=== PATIENT | male | born 1960 | race Two or more races ===

== ENCOUNTER 2017-02-08 18:00 | Emergency (ER) | payer MEDICAID, OTHER ==
[~2017-02-08] VITALS: Ht 167.6 cm; Wt 86.2 kg
[2017-02-08 18:48] VITALS: BP 127/80
[2017-02-08] MEDS ORDERED: IBUPROFEN 600 MG TAB PO ONE (21:45)
[2017-02-08] MEDS ORDERED: BACLOFEN 10 MG TAB PO ONE (21:45)
== END 2017-02-08 22:42 | disposition home or self-care (01) ==
LOC: ER 18:14
DX: S16.1XXA Strain of muscle, fascia and tendon at neck level, initial encounter (principal); R07.89 Other chest pain; X50.9XXA Other and unspecified overexertion or strenuous movements or postures, initial encounter; Y93.89 Activity, other specified; Y92.89 Other specified places as the place of occurrence of the external cause; Y99.8 Other external cause status
CPT/HCPCS: 71010; 72040

== ENCOUNTER 2017-06-20 22:05 | Emergency (ER) | payer MEDICAID ==
[~2017-06-20] VITALS: Ht 165.1 cm; Wt 79.4 kg
[2017-06-20 23:07] LABS: Basophils # (auto) 0.1 uL; Basophils % (auto) 0.7 % (0.0-2.0); Eosinophils # (auto) 0.3 uL; Eosinophils % (auto) 3.2 % (0.0-7.0); Hematocrit 46.9 % (41.0-53.0); Hemoglobin 16.1 g/dL (13.5-17.5); Lymphocytes # (auto) 2.7 uL; Lymphocytes % (auto) 28.3 % (10.0-50.0); Mean Corpuscular Hgb Conc. 34.3 g/dL (32.0-36.0); Mean Corpuscular Volume 87.5 fL (80.0-100.0); Monocytes # (auto) 0.8 uL; Monocytes % (auto) 8.2 % (0.0-12.0); Neutrophils # (auto) 5.7 uL; Neutrophils % (auto) 59.6 % (37.0-80.0); Platelet Count (auto) 219 10^3/uL (140-450); Red Blood Cells 5.36 10^6/uL (4.5-5.90); Red Cell Distribution Width 13.4 % (11.8-14.3); White Blood Cell 9.6 10^3/uL (4.4-10.8)
[2017-06-20 23:27] LABS: Calcium 9.1 mg/dL (8.5-10.1); Potassium 3.9 mmol/L (3.5-5.1)
[2017-06-20 23:29] LABS: BUN/Creatinine Ratio 17.8
[2017-06-20 23:32] LABS: Bilirubin, Total 0.5 mg/dL (0.2-1.0); Total Protein 7.8 g/dL (6.4-8.2)
[2017-06-20 23:34] LABS: Urine Bacteria FEW /hpf (None Seen); Urine Blood Negative /uL (Negative); Urine Hyaline Cast FEW /lpf (0 - 2); Urine Mucus FEW (None Seen); Urine Specific Gravity 1.031 (1.001-1.035); Urine WBC 8 /hpf (0 - 3)
[2017-06-21] MEDS ORDERED: KETOROLAC TROMETH 60MG/2ML VIAL IM ONE (01:45)
[2017-06-21 03:02] VITALS: BP 144/74
== END 2017-06-21 03:45 | disposition home or self-care (01) ==
LOC: ER 22:05
DX: R10.32 Left lower quadrant pain (principal); K59.00 Constipation, unspecified
CPT/HCPCS: 36415; 71045; 74176; 80053; 81001; 82150; 83690; 85025; 96372; 99285; J1885

== ENCOUNTER 2020-01-07 19:44 | Inpatient (IN) | payer MEDICAID ==
[~2020-01-07] VITALS: Ht 170.2 cm; Wt 87.4 kg
[2020-01-07 21:06] LABS: Basophils # (auto) 0 10 ^3/uL (0-0.2); Basophils % (auto) 0.1 % (0.0-2.0); Eosinophils # (auto) 0 10 ^3/uL (0-0.8); Eosinophils % (auto) 0.2 % (0.0-7.0); Hematocrit 44.5 % (41.0-53.0); Hemoglobin 14.9 g/dL (13.5-17.5); Lymphocytes # (auto) 0.9 10 ^3/uL (0.4-5.4); Lymphocytes % (auto) 5.9 % (10.0-50.0); Mean Corpuscular Hgb Conc. 33.6 g/dL (32.0-36.0); Mean Corpuscular Volume 89.3 fL (80.0-100.0); Monocytes # (auto) 0.7 10 ^3/uL (0-1.3); Neutrophils # (auto) 13.2 10 ^3/uL (1.6-8.6); Neutrophils % (auto) 88.8 % (37.0-80.0); Platelet Count (auto) 199 10^3/uL (140-450); Red Blood Cells 4.98 10^6/uL (4.5-5.90); Red Cell Distribution Width 12.9 % (11.8-14.3); White Blood Cell 14.8 10^3/uL (4.4-10.8)
[2020-01-07 21:24] LABS: Alanine Aminotransferase 20 U/L (16-61); Anion Gap 5 (5-15); Aspartate Aminotransferase 16 U/L (15-37); BUN/Creatinine Ratio 14.9; Blood Urea Nitrogen 13 mg/dL (7-18); Calcium 8.6 mg/dL (8.5-10.1); Carbon Dioxide 29 mmol/L (21-32); Chloride 105 mmol/L (98-107); GFR African American 116 mL/min; GFR Non-African American 96 mL/min; Glucose 121 mg/dL (74-106); Potassium 3.8 mmol/L (3.5-5.1); Sodium 139 mmol/L (136-145)
[2020-01-07 21:29] LABS: Alkaline Phosphatase 89 U/L (45-117); Bilirubin, Total 0.7 mg/dL (0.2-1.0); Total Protein 7.6 g/dL (6.4-8.2)
[2020-01-07 21:52] LABS: INR 1.11 (0.9-1.15); Partial Thromboplastin Time 24.4 sec (23.0-31.2)
[2020-01-07] MEDS ORDERED: IOHEXOL 350 MG/ML 100ML IJ ONE (23:24)
[2020-01-07] MEDS ORDERED: MORPHINE SULFATE 4 MG/ML SYR/VIAL IV ONE (23:30)
[2020-01-07] MEDS ORDERED: ONDANSETRON HCL 4 MG/2 ML VIAL IV ONE (23:30)
[2020-01-08] MEDS ORDERED: METF-371 PO (00:47)
[2020-01-08] MEDS ORDERED: TAMS0.4C36 PO (00:47)
[2020-01-08] MEDS ORDERED: NITROGLYCERIN 0.4 MG SL TAB SL PRN (01:00)
[2020-01-08] MEDS ORDERED: MORPHINE SULFATE 4 MG/ML SYR/VIAL IV PRN (01:00)
[2020-01-08] MEDS ORDERED: MORPHINE SULF INJ 2 MG/ML SYRINGE 1ML IV PRN (01:00)
[2020-01-08] MEDS ORDERED: ONDANSETRON HCL 4 MG/2 ML VIAL IV PRN (01:00)
[2020-01-08 03:33] LABS: Urine Bacteria FEW /hpf (None Seen); Urine Blood 1+ /uL (Negative); Urine Specific Gravity > 1.050 (1.001-1.035); Urine WBC 23 /hpf (0 - 3)
--- NOTE | 2020-01-08 04:45 | NUR ---
Telemetry admit from ER MARTINSKALYANI SANCHEZ admitted to Telemetry unit. Patient oriented to Pastora Jacinto RN primary RN, unit, room, bed, and unit policies regarding patient care and visiting hours. Patient now on continuous telemetry monitoring, tele box # and telemetry reading on arrival to unit is NSR . Patient weighed by bedscale and encouraged to call if they need something. All questions and concerns addressed, patient verbalized understanding. Note: patient alert and oriented x 4, german speaking with pharmacognosy teacher at bedside. On room air with even and unlabored respirations, no s/s of distress. Instructed patient to call for assistance PRN. Will continue care.
--- NOTE | 2020-01-08 07:05 | NUR ---
Closing Note patient resting in bed with even and unlabored respirations, no s/s of distress noted. Bed in low locked position with side rails up x 2 and call light within reach.
[2020-01-08 08:58] LABS: Basophils # (auto) 0 10 ^3/uL (0-0.2); Basophils % (auto) 0.3 % (0.0-2.0); Eosinophils # (auto) 0.1 10 ^3/uL (0-0.8); Eosinophils % (auto) 1.4 % (0.0-7.0); Hematocrit 43.6 % (41.0-53.0); Hemoglobin 14.5 g/dL (13.5-17.5); Lymphocytes # (auto) 1.9 10 ^3/uL (0.4-5.4); Mean Corpuscular Hemoglobin 29.8 pg (28.0-32.0); Mean Corpuscular Hgb Conc. 33.2 g/dL (32.0-36.0); Mean Corpuscular Volume 89.6 fL (80.0-100.0); Monocytes # (auto) 0.7 10 ^3/uL (0-1.3); Monocytes % (auto) 7.7 % (0.0-12.0); Neutrophils % (auto) 68.6 % (37.0-80.0); Nucleated Red Blood Cells % 0.1 %; Platelet Count (auto) 187 10^3/uL (140-450); Red Blood Cells 4.87 10^6/uL (4.5-5.90); Red Cell Distribution Width 13.1 % (11.8-14.3); White Blood Cell 8.8 10^3/uL (4.4-10.8)
[2020-01-08] MEDS: ACETAMINOPHEN 500 MG TAB PO PRN (08:58)
[2020-01-08] MEDS: TAMSULOSIN HYDROCHLORIDE 0.4 MG CAP PO SCH (08:58)
[2020-01-08] MEDS: metFORMIN HYDROCHLORIDE 850 MG TAB PO SCH ×3 (08:58→18:40)
[2020-01-08 09:00] VITALS: BP 115/85
[2020-01-08 09:14] LABS: Albumin 3.7 g/dL (3.4-5.0); Calcium 8.5 mg/dL (8.5-10.1); Potassium 3.8 mmol/L (3.5-5.1)
[2020-01-08 09:17] LABS: BUN/Creatinine Ratio 14.1; Bilirubin, Total 0.8 mg/dL (0.2-1.0); Total Protein 7.2 g/dL (6.4-8.2)
[2020-01-08 12:16] LABS: Cholesterol 135 mg/dL (< 200)
[2020-01-08 12:18] LABS: HDL Cholesterol 48 mg/dL (40-59); LDL Cholesterol 85 mg/dL (< 100); Triglycerides 88 mg/dL (< 150)
[2020-01-08 13:00] VITALS: BP 126/59
[2020-01-08 17:00] VITALS: BP 122/74
--- NOTE | 2020-01-08 19:15 | NUR ---
OPENING NOTE- NOC SHIFT PATIENT IS ALERT AND ORIENTED X4, ANSWERS IN COMPLETE SENTENCES AND MAKES APPROPRIATE EYE CONTACT. PATIENT IS DJIBOUTIAN SPEAKING AND REQUIRES PUBLICITY AGENT. DISCUSSED POC WITH PATIENT AND INSTRUCTED PATIENT TO CALL PRN; PATIENT VERBALIZED UNDERSTANDING. WILL CONTINUE TO MONITOR Q1H AND PRN. NO S/SX OF DISTRESS, SOB OR PAIN. PATIENT DENIES DIZZINESS AT THIS TIME. BED ALARM IS ON.
[2020-01-08 22:00] VITALS: BP 124/73
--- NOTE | 2020-01-08 22:00 | NUR ---
DR LUND AT BEDSIDE
[2020-01-08] MEDS ORDERED: LORazepam 2MG/ML-1ML VIAL IV PRN (22:45)
[2020-01-09 05:00] VITALS: BP 119/71
[2020-01-09 06:15] LABS: Basophils # (auto) 0 10 ^3/uL (0-0.2); Basophils % (auto) 0.3 % (0.0-2.0); Eosinophils # (auto) 0.2 10 ^3/uL (0-0.8); Eosinophils % (auto) 2.4 % (0.0-7.0); Hemoglobin 14.4 g/dL (13.5-17.5); Mean Corpuscular Hemoglobin 29.9 pg (28.0-32.0); Mean Corpuscular Hgb Conc. 33.4 g/dL (32.0-36.0); Mean Corpuscular Volume 89.5 fL (80.0-100.0); Monocytes # (auto) 0.7 10 ^3/uL (0-1.3); Monocytes % (auto) 8.2 % (0.0-12.0); Neutrophils # (auto) 5.7 10 ^3/uL (1.6-8.6); Neutrophils % (auto) 66.1 % (37.0-80.0); Platelet Count (auto) 182 10^3/uL (140-450); Red Blood Cells 4.81 10^6/uL (4.5-5.90); White Blood Cell 8.6 10^3/uL (4.4-10.8)
[2020-01-09 06:29] LABS: Potassium 3.6 mmol/L (3.5-5.1)
[2020-01-09 06:36] LABS: Albumin 3.7 g/dL (3.4-5.0); BUN/Creatinine Ratio 19.3; Bilirubin, Total 0.6 mg/dL (0.2-1.0); Calcium 8.3 mg/dL (8.5-10.1); Total Protein 6.9 g/dL (6.4-8.2)
--- NOTE | 2020-01-09 07:50 | NUR ---
Opening Shift Note Received report from retail shift manager nurse, assumed care of patient. Patient awake and alert. No S/S of distress/SOB or pain. Instructed on POC and to call for assist PRN, will continue to monitor for changes Q1hr and PRN.
--- NOTE | 2020-01-09 08:13 | NUR ---
Patient getting EEG at bedside.
--- NOTE | 2020-01-09 08:15 | NUR ---
BS CHECK PER PATIENT REQUEST BS IS 154 Addendum: 01/09/20 at 0816 by Sandee Costa RN CORRECT TIME AND DATE FOR THIS NOTE IS 01/08/20 @2000
--- NOTE | 2020-01-09 08:16 | NUR ---
CLOSING NOTE- NOC SHIFT ENDORSED PATIENT CARE TO DAY SHIFT NURSE. PATIENT IS ALERT AND ORIENTED. NO S/SX OF DISTRESS OR SOB.
[2020-01-09] MEDS: metFORMIN HYDROCHLORIDE 850 MG TAB PO SCH ×3 (08:32→17:38)
[2020-01-09] MEDS: TAMSULOSIN HYDROCHLORIDE 0.4 MG CAP PO SCH (08:33)
--- NOTE | 2020-01-09 08:45 | NUR ---
Patient off the unit Patient transported via wheelchair for MRI procedure. Patient showed no sign of distress.
[2020-01-09 08:48] VITALS: BP 117/83
--- NOTE | 2020-01-09 09:05 | NUR ---
Patient back on unit Patient back post MRI, tele monitor placed back on the patient. No complaints of SOB/pain. Will continue to monitor.
[2020-01-09 12:22] VITALS: BP 116/73
--- NOTE | 2020-01-09 14:53 | NUR ---
EEG-ELECTROENCEPHALOGRAM COMPLETED AT BEDSIDE @ 0825.
--- NOTE | 2020-01-09 15:30 | NUR ---
Kevin Tesfaye was at bedside Notified Mera RE: continuing antibiotic prescribed s/p prostate biopsy per the patient. N.P. verbalized understanding. N.P. to place order.
[2020-01-09 17:00] VITALS: BP 111/82
--- NOTE | 2020-01-09 19:15 | NUR ---
Opening Shift Note Assumed care of patient from day shift RN patient awake and alert and oriented x4. armenian speaking only. No S/S of distress/SOB or pain. Instructed on POC and to call for assist PRN, safety measures in place bed in lowest position, call light with in reach side rails up x2. will continue to monitor for changes Q1hr and PRN.
--- NOTE | 2020-01-09 19:30 | NUR ---
Care endorsed/End of shift Patient resting in bed with even and unlabored respirations, no distress noted. Fall precautions in place with call light within reach. Care endorsed to EDDIE Sheikh.
[2020-01-09 22:00] VITALS: BP 109/83
[2020-01-10 05:00] VITALS: BP 110/76
[2020-01-10 08:00] VITALS: BP 105/73
[2020-01-10] MEDS: metFORMIN HYDROCHLORIDE 850 MG TAB PO SCH ×3 (08:30→17:11)
[2020-01-10] MEDS: TAMSULOSIN HYDROCHLORIDE 0.4 MG CAP PO SCH (08:30)
[2020-01-10 09:00] VITALS: BP 105/73
[2020-01-10 10:20] VITALS: BP 105/73
[2020-01-10 10:48] VITALS: BP 105/73
[2020-01-10] MEDS: ACETAMINOPHEN 500 MG TAB PO PRN (12:40)
[2020-01-10 13:00] VITALS: BP 111/73
--- NOTE | 2020-01-10 14:42 | NUR ---
Assessment Patient is a 59-year-old male who is alert and oriented. Prior to admission patient lived home alone and functioned independently. Patient can care for his own ADLs. Patient will return home to his prior living arrangements post discharge and he will arranged his own transportation. Advised patient there is a social service consult for home health safety evaluation. Informed patient he has the right to participate in all discharge planning. Patient verbalized understanding and agreed to discharge plan. Faxed clinical information to [facility] and [facility]. Per Hansa with [facility] patient has been accepted and service to start within 24-48hrs upon d/c day. Obtain authorization from [facility] [id number]. Informed bedside nurse. Addendum: 01/10/20 at 1442 by JARROD SAUL Amended: Links added.
--- NOTE | 2020-01-10 17:57 | NUR ---
Discharge instructions given as ordered. Encourage to follow up with PMD Dr. Elle Brand on at 1300. Prescriptions given to pt. All questions and concerns addressed. Patient verbalized understanding. Medication reconciliation form completed and copy given to patient. Pt refused flu vac. IV removed with catheter intact, pressure dressing applied. Telemetry unit returned to ICU. Patient taken to vehicle via wheelchair with all personal belongings, accompanied by staff . No distress noted at time of departure.
== END 2020-01-10 17:35 | disposition home health service (06) | DRG 204 ==
LOC: EDUNIT# 19:44 → ER 19:44 → EDBD 19:44 → TELE 19:45 → TELE-CENTR 01-08 04:38
PROVIDERS: ADMIT Internal Medicine; ATTEND Internal Medicine
DX: R55 Syncope and collapse (principal); E11.9 Type 2 diabetes mellitus without complications; I10 Essential (primary) hypertension; F17.200 Nicotine dependence, unspecified, uncomplicated; N40.0 Benign prostatic hyperplasia without lower urinary tract symptoms; Z82.49 Family history of ischemic heart disease and other diseases of the circulatory system; Z83.3 Family history of diabetes mellitus; Z85.46 Personal history of malignant neoplasm of prostate
CPT/HCPCS: 36415; 70450; 70551; 71045; 71275; 80053; 80061; 80320; 81001; 82962; 83036; 83880; 84443; 84484; 85025; 85379; 85610; 85730; 93005; 93306; 93970; 95819; 96374; 96375; 96376; G0378; J2405